=== PATIENT | male | born 1985 | race Caucasian/White ===

== ENCOUNTER 2018-07-23 18:42 | Emergency (ER) | payer OTHER ==
[~2018-07-23] VITALS: Ht 180.3 cm; Wt 72.6 kg
[2018-07-23 18:56] VITALS: Ht 180.3 cm; Wt 72.6 kg
[2018-07-23 21:04] VITALS: BP 146/84
== END 2018-07-23 21:04 | disposition home or self-care (01) ==
LOC: ED 18:42
DX: F41.9 Anxiety disorder, unspecified (principal); G47.9 Sleep disorder, unspecified